=== PATIENT | female | born 1990 | race African-American/Black ===

== ENCOUNTER 2020-10-14 14:43 | Emergency (ER) | payer OTHER, MEDICAID, SELFPAY ==
[2020-10-14 14:48] VITALS: BP 131/75; PULSE 65; RESP 18; TEMP 36.6; O2SAT 100
--- NOTE | 2020-10-14 15:12 | ED_ITS ---
HPI - Abdominal Pain General Chief Complaint: Abdominal Pain Stated Complaint: Stomach pain Time Seen by Provider: 10/14/20 14:49 Source: patient Mode of arrival: Ambulatory History of Present Illness HPI narrative: 29-year-old female nonsmoker with a history of ovarian cyst presents with a friend and a chief complaint of epigastric and right upper quadrant pain that radiates to her back for the past few days. She states that seems to be worse when she eats and occasionally when she moves. She admits to nausea but no vomiting. She has had no fever or chills. She denies any significant alcohol abuse. She was seen at [facility] 2 days ago and had a very thorough workup including ultrasound, CT scan and labs which were nondi agnostic. There was discussion about the potential of poor functioning gallbladder and even possibly peptic ulcer disease. Patient was sent with prescriptions for omeprazole and hydrocodone and presents with ongoing pain Related Data Allergies Allergy/AdvReac Type Severity Reaction Status Date / Time No Known Drug Allergies Allergy Verified 10/14/20 14:50 Review of Systems Review of Systems Narrative: GENERAL: Denies chills, fatigue, malaise, fever, sweats. HEENT: Denies sinus pain, ear pain, sore throat, difficulty swallowing, diz ziness. RESPIRATORY: Denies dyspnea, cough, wheezing, hemoptysis, sputum. CARDIOVASCULAR: Denies chest pain, palpitations, orthopnea, edema, GASTROINTESTINAL: See HP : Denies dysuria, frequency, incontinence, hematuria, urinary retention. MUSCULOSKELETAL: denies weakness, joint pain, or bony pain SKIN: Denies rash, skin lesions, or other NEUROLOGIC: Denies weakness, headache, numbness, change in speech, confusion, seizures, incoordination. PSYCHIATRIC: No concerning psychosocial issues. 12 point review of systems is negative except for those stated above Exam Narrative Exam Narrative: GENERAL: [29 year old patient appears stated age. Well-developed patient, in mild distress. HEAD: Atraumatic. Normocephalic. EYES: Pupils equal round and reactive. Extraocular motions intact. No scleral icterus. No injection or drainage. ENT: Nose without bleeding, purulent drainage. Throat without erythema, tonsillar hypertrophy or exudate. Airway patent. NECK: Trachea midline. Non tender CARDIOVASCULAR: Regular rate and rhythm without murmurs, gallops, or rubs. RESPIRATORY: Clear to auscultation. Breath sounds equal bilaterally. No wheezes, rales, or rhonchi. GASTROINTESTINAL: Abdomen soft, right upper quadrant pain to palpation nondistended. EXTREMITIES: No edema or joint tenderness. BACK: Nontender without deformity or crepitance. No flank tenderness. NEURO: AOx3. SKIN: No rash or erythema of visible areas Initial Vital Signs Initial Vital Signs: Vital Signs Temperature 97.9 F 10/14/20 14:48 Pulse Rate 65 10/14/20 14:48 Respiratory Rate 18 10/14/20 14:48 Blood Pressure 131/75 10/14/20 14:48 Pulse Oximetry 100 10/14/20 14:48 Course Orders Ordered: ED Orders 10/14/20 14:50 EKG-12 Lead Stat 10/14/20 15:05 Complete Blood Count AUTO DIFF Stat Comprehensive Metabolic Panel Stat Lipase Stat 10/14/20 15:44 US abdomen limited Stat Vital Signs Vital signs: Vital Signs - 8 hr 10/14/20 14:48 Temperature 97.9 F Pulse Rate 65 Respiratory Rate 18 Blood Pressure 131/75 Pulse Oximetry 100 MDM - Abdominal Pain Medical Records Attestation: I reviewed the patient's medical records. Medical records narrative: Records obtained from [facility] and reviewed Lab Data Attestation: I reviewed the patient's lab results. Result diagrams: 10/14/20 15:05 10/14/20 15:05 Labs: Lab Results 10/14/20 10/14/20 Range/Units 15:05 15:05 WBC 9.5 (4.5-11.0) X10^3/uL RBC 4.68 (4.0-5.2) X10^6/uL Hgb 12.8 (12.0-16.0) g/dL Hct 38.6 (36-46) % MCV 82.4 (80-100) fL MCH 27.4 (26-34) PG MCHC 33.3 (30-36) % RDW 15.4 H (11.6-14.8) % Plt Count 270 (150-400) X10^3/uL Neut % (Auto) 39.4 L (50-75) % Lymph % (Auto) 50.3 H (25-40) % [place] % (Auto) 6.9 (3-14) % Eos % (Auto) 2.4 (2-4) % Baso % (Auto) 1.0 (0-2) % Neut # (Auto) 3800 (8529-8936) /uL Lymph # (Auto) 4800 H (3101-0579) /uL [place] # (Auto) 700 (0-900) /uL Eos # (Auto) 200 (0-450) /uL Baso # (Auto) 100 (0-100) /uL Sodium 139 (137-145) mmol/L Potassium 4.0 (3.4-5.1) mmol/L Chloride 103 (98-107) mmol/L Carbon Dioxide 30 (22-32) mmol/L BUN 8 (7-17) mg/dL Creatinine 0.76 (0.52-1.04) mg/dL Estimated GFR > 60.0 (>60) mL/min BUN/Creatinine Ratio 10.5 (6-22) Glucose 84 (70-100) mg/dL Calcium 9.0 (8.4-10.2) mg/dL Total Bilirubin 0.3 (0.2-1.3) mg/dL AST 33 (14-36) IU/L ALT 25 (<35) IU/L Alkaline Phosphatase 69 (38-126) U/L Total Protein 7.4 (6.3-8.2) g/dL Albumin 4.1 (3.5-5.0) g/dL Globulin 3.3 (1.7-4.1) g/dL Albumin/Globulin Ratio 1.2 (1.0-2.8) Lipase 48 (23-300) U/L MDM Narrative Medical decision making narrative: 29-year-old female with a very reassuring physical exam and history. Epigastric pain with radiation to her back worse with eating likely most consistent with gallbladder disease. She has had 2 visits with reassuring imaging and lab work suggesting this is not a surgical gallbladder at this time. Peptic ulcer disease also considered. Patient reassured, given return precautions and questions answered to her apparent satisfaction Discharge Plan Departure Patient Disposition: Home Clinical Impression: Abdominal pain, acute, right upper quadrant Instructions: DI for Abdominal Pain-Adult Activity Restrictions/Additional Instructions: *You have been diagnosed with [Upper abdomen pain. Your physical exam, labs, and ultrasound are very reassuring and there is no indication of a surgical problem. Not unlike your previous visit I suspect a poorly functioning gallbladder or possibly peptic ulcer disease ] *What to do: *Please continue to take your regular medications as directed. [ ] New medication prescriptions sent to your pharmacy: [ ] [ ] New medication written as a paper prescription [x ] No new medications given Please consider a clear liquid diet for the next 24-48 hours and then advance slowly as tolerated, but be sure to avoid fatty foods and alcohol. *Please follow up with your primary care provider in 2-3 days, call for an appointment. Let them know you were seen in the Emergency Department and that we ask that you be seen in follow up. We will electronically transmit a record of today's note if your PCP is in our system. It would seem reasonable to discuss the possibility of a HIDA scan to look at your gallbladder or even an endoscopy with [facility] or GI. They may need to help you with a referral *If you do not have a primary care provider please contact the [facility] Resource line at [phone]. They will ask some questions about your medical history and help get you set up with a doctor in the community. *Return to Emergency Department if you should have any new, worsening or concerning symptoms, such as [fever greater than 101 F, shaking chills, worsening pain, persistent vomiting or other bothersome symptoms] Referrals: [facility] Resources [Outside] Bharat Carlton DO [Emergency Provider] - Kevin Hair MD [Physician] -
[2020-10-14 15:27] LABS: Add Manual Diff / Slide Review NO; Basophils Absolute Auto 100 /uL (0-100); Eosinophils Absolute Auto 200 /uL (0-450); Eosinophils Percent Auto 2.4 % (2-4); Hematocrit 38.6 % (36-46); Hemoglobin 12.8 g/dL (12.0-16.0); Lymphocytes Absolute Auto 4800 /uL (1100-4500); Lymphocytes Percent Auto 50.3 % (25-40); Mean Corpuscular HGB Conc 33.3 % (30-36); Mean Corpuscular Hemoglobin 27.4 PG (26-34); Mean Corpuscular Volume 82.4 fL (80-100); Monocytes Absolute Auto 700 /uL (0-900); Monocytes Percent Auto 6.9 % (3-14); Neutrophils Absolute Auto 3800 /uL (1500-7000); Neutrophils Percent Auto 39.4 % (50-75); Platelet Count 270 X10^3/uL (150-400); Red Blood Cell Count 4.68 X10^6/uL (4.0-5.2); Red Cell Distribution Width 15.4 % (11.6-14.8); White Blood Cell Count 9.5 X10^3/uL (4.5-11.0)
[2020-10-14 15:42] LABS: Alanine Aminotransferase 25 IU/L (<35); Albumin 4.1 g/dL (3.5-5.0); Albumin Globulin Ratio 1.2 (1.0-2.8); Alkaline Phosphatase 69 U/L (38-126); Aspartate Aminotransferase 33 IU/L (14-36); BUN Creatinine Ratio 10.5 (6-22); Bilirubin Total 0.3 mg/dL (0.2-1.3); Blood Urea Nitrogen 8 mg/dL (7-17); Carbon Dioxide 30 mmol/L (22-32); Chloride 103 mmol/L (98-107); Estimated Glomerular Filt Rate > 60.0 mL/min (>60); Globulin 3.3 g/dL (1.7-4.1); Glucose 84 mg/dL (70-100); HEMOLYSIS < 15 (0-50); Lipase 48 U/L (23-300); Sodium 139 mmol/L (137-145); Total Protein 7.4 g/dL (6.3-8.2)
--- NOTE | 2020-10-14 15:44 | DI.US.S_ITS ---
PROCEDURE: US ABDOMEN LIMITED INDICATIONS: severe RUQ pain, with eating TECHNIQUE: Real-time focused scanning was performed of the abdomen, with image documentation. COMPARISON: None. FINDINGS: The liver demonstrates normal size. The liver demonstrates generalized mildly increased echogenicity. This decreases ultrasound sensitivity for detection of hepatic masses. The gallbladder is not well seen. The biliary tree is not well seen. The pancreas is not well seen. This study is limited by bowel gas and body habitus. IMPRESSION: Limited study, without visualization of the gallbladder or the biliary tree. If clinically appropriate, please consider a short-term follow-up study, following a 6 hour fast. Fatty liver infiltration. Dictated by: Fredi Jacobo M.D. on 10/14/2020 at 16:06 Approved by: Fredi Jacobo M.D. on 10/14/2020 at 16:07
[2020-10-14 17:18] VITALS: BP 127/65; PULSE 53; RESP 18; O2SAT 98
== END 2020-10-14 17:19 | disposition home or self-care (01) ==
PROVIDERS: Emergency Medicine; Emergency Provider Emergency Medicine
DX: R10.11 Right upper quadrant pain (principal)
CPT/HCPCS: 36415; 76705; 80053; 81003; 81025; 83690; 85025; 99283; 99284